=== PATIENT | male | born 1950 | race Caucasian/White ===

== ENCOUNTER → 2023-12-07 14:54 | Outpatient (BNVA) | payer MEDICARE, SELFPAY | PROVIDERS: Visit Provider Family Medicine | DX: E78.2 Mixed hyperlipidemia (principal); I10 Essential (primary) hypertension; K29.70 Gastritis, unspecified, without bleeding; E87.6 Hypokalemia | CPT/HCPCS: 80053; 80061; 83735; 85025 ==

== ENCOUNTER → 2024-05-10 10:15 | Outpatient (BNVA) | payer MEDICARE, SELFPAY | PROVIDERS: PCP Family Medicine; Visit Provider Family Medicine | DX: I10 Essential (primary) hypertension (principal); Z86.39 Personal history of other endocrine, nutritional and metabolic disease; E87.6 Hypokalemia; K29.30 Chronic superficial gastritis without bleeding | CPT/HCPCS: 80053; 83540; 83735; 85025 ==

== ENCOUNTER → 2024-12-21 08:42 | Outpatient (BNVA) | payer MEDICARE, SELFPAY | PROVIDERS: PCP Family Medicine; Visit Provider Family Medicine | DX: E78.2 Mixed hyperlipidemia (principal); I10 Essential (primary) hypertension | CPT/HCPCS: 80048; 80061 ==

== ENCOUNTER 2025-02-28 16:50 | Emergency (ER) | payer MEDICARE, SELFPAY ==
[2025-02-28 17:19] VITALS: BP 122/73; PULSE 70; RESP 16; TEMP 36.7; O2SAT 99
--- NOTE | 2025-02-28 19:17 | XRR_ITS ---
PROCEDURE INFORMATION: Exam: XR Chest Exam date and time: 02/28/2025 10:19 PM Age: 75 years old Clinical indication: Other: Weakness TECHNIQUE: Imaging protocol: Radiologic exam of the chest. Views: 1 view. COMPARISON: No relevant prior studies available. FINDINGS: Lungs: Unremarkable. No consolidation. Pleural spaces: Unremarkable. No pleural effusion. No pneumothorax. Heart/Mediastinum: A moderate hiatal hernia is present. Vasculature: There is unfolding of the thoracic aorta. Bones/joints: Post right rotator cuff repair and right distal claviculectomy. Glenohumeral severe chronic fracture deformities of multiple right ribs. XR/XR chest 1V portable [id number] IMPRESSION: No acute cardiopulmonary process.
[2025-02-28 19:47] LABS: Basophils % 0.4 %; Eosinophils # 0.1 10^3/uL (0.0-0.8); Eosinophils % 1.7 %; Hematocrit 41.4 % (37-53); Lymphocytes # 1.6 10^3/uL (0.8-4.8); Lymphocytes % 22.7 %; Mean Corpuscular HGB Conc 33.6 g/dL (30-55); Mean Corpuscular Hemoglobin 30.8 pg (27-33); Mean Corpuscular Volume 91.6 fl (82-101); Mean Platelet Volume 8.5 fL (7.4-10.4); Monocytes # 0.7 10^3/uL (0.2-0.9); Monocytes % 9.5 %; Neutrophils # 4.61 10^3/uL (1.8-7.7); Neutrophils % 65.1 %; Nucleated Red Blood Cells % 0 %; Platelet Count 238 10^3/cmm (157-399); Red Blood Count 4.52 10^6/uL (3.85-5.65); White Blood Count 7.08 10^3/uL (3.29-11.43)
[2025-02-28 20:06] LABS: Lactic Sepsis W/Reflex 0.9 mmol/L (0.5-2.2)
[2025-02-28 20:07] LABS: Troponin(5th) Baseline 31 ng/L (0-15)
[2025-02-28 20:16] LABS: Alanine Aminotransferase 15 U/L (0-41); Albumin Level 4.2 g/dL (3.5-5.2); Alkaline Phosphatase 82 U/L (40-130); Anion Gap 15.6 (5-19); Aspartate Amino Transferase 20 U/L (0-40); Blood Urea Nitrogen 25 mg/dL (8-23); Calcium 9.2 mg/dL (8.5-10.5); Carbon Dioxide 29 mmol/L (22-29); Chloride 91 mmol/L (98-107); Creatinine Clr Calc Pharmacy 64.3747; Globulin 1.9 g/dL (1.3-4.6); Glucose 102 mg/dL (65-115); NT Pro B Type Natriuretic Pept 63 pg/mL (0-450); Osmolality Calculated 279 mOsm/kg (285-295); Potassium 3.6 mmol/L (3.5-5.1); Sodium 132 mmol/L (136-145); Total Bilirubin 0.8 mg/dL (0.15-1.2); Total Protein 6.1 g/dL (6.6-8.7)
[2025-02-28 21:00] LABS: Influenza A NEGATIVE (Negative); Influenza B NEGATIVE (Negative); Respiratory Syncytial Virus Ce NEGATIVE (Negative); SARS-CoV-2 PCR NEGATIVE (Negative)
[2025-02-28 21:53] LABS: Troponin 5 2HR 30.75 ng/L (0-15)
[2025-02-28 21:54] LABS: Troponin 5 2HR Delta -0.25 ABS# (0-10)
--- NOTE | 2025-02-28 21:58 | ECG_ITS ---
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 Measurements Intervals [place] Rate: 71 P: 50 NV: 207 QRS: 36 QRSD: 160 T: 36 QT: 438 QTc: 477 Interpretive Statements SINUS RHYTHM WITH SINUS ARRHYTHMIA INDETERMINATE AXIS RIGHT BUNDLE BRANCH BLOCK [120+ ms QRS DURATION, UPRIGHT V1, 40+ ms S IN I/aVL/V4/V5/V6] No previous ECG available for comparison Electronically Signed On 03-06-2025 11:52:24 CDT by Jesse Wilson M.D. [email or web address]
--- NOTE | 2025-02-28 21:58 | ECG_ITS ---
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
[2025-02-28 22:06] VITALS: BP 135/78; PULSE 63; RESP 16; O2SAT 98
[2025-02-28 22:18] LABS: Bilirubin Urine Negative (Negative); Blood Urine Negative (Negative); Glucose Urine UA Negative (Normal); Ketones Urine Negative (Negative); Leukocyte Esterase Urine Negative (Negative); Nitrate Urine Negative (Negative); Protein Urine Negative (Negative); Specific Gravity, Urine 1.012 (1.005-1.030); Urine Appearance Clear (CLEAR); Urine Color Yellow (Yellow)
[2025-02-28 22:21] LABS: Bacteria Urine None Seen /hpf; Hyaline Casts Urine 0-4 /lpf; RBC Urine 0-2 /hpf (0-2); Squamous Epithelial Cell Urine 0-5 /hpf (0-5); WBC Urine 0-5 /hpf (0-5)
--- NOTE | 2025-02-28 23:40 | W.ED.GENADLT ---
HPI - General Adult General: Chief complaint: General Medical Stated complaint: high bp Time Seen by Provider: 02/28/25 22:23 History of Present Illness: 75-year-old man with a history of hypertension who presents the emergency room with episodes of lightheadedness and confusion and not feeling well. He had a couple of episodes of this today and his blood pressure was low at home. No other symptoms. No fever. He has a chronic cough. No chest pain. No abdominal pain. His PCP suggested he come to the emergency room for evaluation. Related Data Home Medications ?Medication ?Instructions ?Recorded ?Confirmed aspirin 81 mg tablet,delayed 81 mg PO DAILY 12/07/23 12/21/24 release (Adult Aspirin Regimen) ferrous sulfate 325 mg (65 mg 325 mg PO DAILY 12/07/23 12/21/24 iron) tablet omega-3 fatty acids 500 mg capsule 500 mg PO DAILY 12/07/23 12/21/24 zinc sulfate as directed 12/07/23 12/21/24 Previous Rx's ?Medication ?Instructions ?Recorded levocetirizine 5 mg tablet 5 mg PO DAILY 90 days #90 tabs 06/06/24 atorvastatin 10 mg tablet 10 mg PO DAILY 90 days #90 tabs 12/25/24 chlorthalidone 50 mg tablet 50 mg PO DAILY 90 days #90 tabs 12/25/24 famotidine 20 mg tablet 20 mg PO BID 90 days #180 tabs 12/25/24 furosemide 20 mg tablet 20 mg PO BID 90 days #180 tabs 12/25/24 lisinopril 20 mg tablet 20 mg PO DAILY 90 days #90 tabs 12/25/24 meloxicam 15 mg tablet 15 mg PO DAILY PRN pain 90 days 12/25/24 #90 tabs potassium chloride 10 mEq 10 meq PO BID 90 days #180 caps 12/25/24 capsule,extended release tizanidine 4 mg tablet 4 mg PO DAILY PRN muscle 12/25/24 spasticity 90 days #90 tabs Allergies Allergy/AdvReac Type Severity Reaction Status Date / Time tetanus and diphtheria Allergy ALGY-Hives Verified 12/21/24 07:28 toxoids Review of Systems Narrative: Constitutional symptoms: Negative except as documented in HPI. Skin symptoms: Negative except as documented in HPI. Eye symptoms: Negative except as documented in HPI. ENMT symptoms: Negative except as documented in HPI. Respiratory symptoms: Negative except as documented in HPI. Cardiovascular symptoms: Negative except as documented in HPI. Gastrointestinal symptoms: Negative except as documented in HPI. Genitourinary symptoms: Negative except as documented in HPI. Musculoskeletal symptoms: Negative except as documented in HPI. Neurologic symptoms: Negative except as documented in HPI. Psychiatric symptoms: Negative except as documented in HPI. Endocrine symptoms: Negative except as documented in HPI. [facility] ED PFSH: Medical History Hypertension Social History Smoking and tobacco/nicotine status: former use of tobacco/nicotine Alcohol intake: never Substance/Drug Use: never Physical Exam Narrative: EXAM NARRATIVE: General: Alert, no acute distress. Skin: Warm, dry. Head: Normocephalic, atraumatic. Neck: Supple, trachea midline. Eye: Extraocular movements are intact. Ears, nose, mouth and throat: mucosa moist. Cardiovascular: Regular, Normal peripheral perfusion. Respiratory: Lungs are clear to auscultation, respirations are non-labored, breath sounds are equal, Symmetrical chest wall expansion. Gastrointestinal: Soft, Nontender, Non distended Musculoskeletal: Normal ROM, no deformity. Neurological: Alert and oriented, No focal neurological deficit observed. Psychiatric: Cooperative, appropriate mood & affect. Course Vital Signs: Vital signs: Vital Signs Temperature 98.0 F 02/28/25 17:19 Pulse Rate 63 02/28/25 22:06 Respiratory Rate 16 02/28/25 22:06 Blood Pressure 135/78 02/28/25 22:06 Pulse Oximetry 98 02/28/25 22:06 Oxygen Delivery Me thod Room Air 02/28/25 22:06 [facility] - General Adult Medical Decision Making Medical decision making: Differential diagnosis for patient presenting with generalized weakness including but not limited to and based on the above HPI, review of systems and physical exam: Sepsis. Dehydration. Renal failure. Electrolyte abnormalities. Anemia. Congestive heart failure. Hypotension. Coronary syndrome. Hepatitis. Cirrhosis. Infections such as pneumonia, urinary tract infection, [place]ick bourne illness, Cellulitis, Viral infections including influenza and Covid-19. Workup: labwork and lab/exam driven imaging ordered to evaluate, rule in and rule out above pathologies. Lab Review: Laboratory results were reviewed and interpreted by myself the emergency room physician. No leukocytosis. No anemia. No urinary tract infection. Flu COVID RSV are negative. His BUN and creatinine are a bit elevated over his baseline so he might be a little bit dehydrated. I reviewed the patient's medical record. Reexamination: Patient remained stable. No increased work of breathing. No altered mental status. No focal motor deficits. Blood pressures remain normal while he is been here. Assessment and plan: Dehydration Normal saline bolus in the emergency room - Discharged home - Discussed plan with patient. Answered any questions. - Evaluation and treatment of this problem were appropriate in the emergency setting. Lab Data 02/28/25 19:35 02/28/25 19:35 Radiology Impressions Chest X-Ray 02/28/25 19:17 IMPRESSION: No acute cardiopulmonary process. Laboratory Results WBC 7.08 10^3/uL (3.29-11.43) 02/28/25 19:35 RBC 4.52 10^6/uL (3.85-5.65) 02/28/25 19:35 Hgb 13.90 g/dL (11.27-16.99) 02/28/25 19:35 Hct 41.4 % (37-53) 02/28/25 19:35 MCV 91.6 fl (82-101) 02/28/25 19:35 MCH 30.8 pg (27-33) 02/28/25 19:35 MCHC 33.6 g/dL (30-55) 02/28/25 19:35 RDW 12.0 % (12.1-15.1) L 02/28/25 19:35 Plt Count 238 10^3/cmm (157-399) 02/28/25 19:35 MPV 8.5 fL (7.4-10.4) 02/28/25 19:35 Neut % (Auto) 65.1 % 02/28/25 19:35 Lymph % (Auto) 22.7 % 02/28/25 19:35 [place] % (Auto) 9.5 % 02/28/25 19:35 Eos % (Auto) 1.7 % 02/28/25 19:35 Baso % (Auto) 0.4 % 02/28/25 19:35 Neut # (Auto) 4.61 10^3/uL (1.8-7.7) 02/28/25 19:35 Lymph # (Auto) 1.6 10^3/uL (0.8-4.8) 02/28/25 19:35 [place] # (Auto) 0.7 10^3/uL (0.2-0.9) 02/28/25 19:35 Eos # (Auto) 0.1 10^3/uL (0.0-0.8) 02/28/25 19:35 Baso # (Auto) 0.0 10^3/uL (0.0-0.1) 02/28/25 19:35 Nucleated RBC % (auto) 0 % 02/28/25 19:35 Nucleated RBCs # 0.0 /100WBC 02/28/25 19:35 Sodium 132 mmol/L (136-145) L 02/28/25 19:35 Potassium 3.6 mmol/L (3.5-5.1) 02/28/25 19:35 Chloride 91 mmol/L (98-107) L 02/28/25 19:35 Carbon Dioxide 29 mmol/L (22-29) 02/28/25 19:35 Anion Gap 15.6 (5-19) 02/28/25 19:35 BUN 25 mg/dL (8-23) H 02/28/25 19:35 Creatinine 1.2 mg/dL (0.7-1.2) 02/28/25 19:35 GFR Calculation Not Reportable 02/28/25 19:35 Glucose 102 mg/dL (65-115) 02/28/25 19:35 Calculated Osmolality 279 mOsm/kg (285-295) L 02/28/25 19:35 Lactic Acid 0.9 mmol/L (0.5-2.2) 02/28/25 19:35 Calcium 9.2 mg/dL (8.5-10.5) 02/28/25 19:35 Total Bilirubin 0.8 mg/dL (0.15-1.2) 02/28/25 19:35 AST 20 U/L (0-40) 02/28/25 19:35 ALT 15 U/L (0-41) 02/28/25 19:35 Alkaline Phosphatase 82 U/L (40-130) 02/28/25 19:35 Troponin T Baseline 31 ng/L (0-15) H 02/28/25 19:35 Troponin T 120 Minute 30.75 ng/L (0-15) H 02/28/25 21:30 Delta Troponin T -0.25 ABS# (0-10) L 02/28/25 21:30 C-Reactive Protein 3.0 mg/L (0.0-4.9) 02/28/25 19:35 NT-Pro-B Natriuret Pep 63 pg/mL (0-450) 02/28/25 19:35 Total Protein 6.1 g/dL (6.6-8.7) L 02/28/25 19:35 Albumin 4.2 g/dL (3.5-5.2) 02/28/25 19:35 Globulin 1.9 g/dL (1.3-4.6) 02/28/25 19:35 Urine Color Yellow (Yellow) 02/28/25 22:13 Urine Appearance Clear (CLEAR) 02/28/25 22:13 Urine pH 7.0 (5-7) 02/28/25 22:13 Ur Specific [place] 1.012 (1.005-1.030) 02/28/25 22:13 Urine Protein Negative (Negative) 02/28/25 22:13 Urine Glucose (UA) Negative (Normal) 02/28/25 22:13 Urine Ketones Negative (Negative) 02/28/25 22:13 Urine Blood Negative (Negative) 02/28/25 22:13 Urine Nitrate Negative (Negative) 02/28/25 22:13 Urine Bilirubin Negative (Negative) 02/28/25 22:13 Urine Urobilinogen 1.0 mg/dL (Negative) 02/28/25 22:13 Ur Leukocyte Esterase Negative (Negative) 02/28/25 22:13 Urine RBC 0-2 /hpf (0-2) 02/28/25 22:13 Urine WBC 0-5 /hpf (0-5) 02/28/25 22:13 Ur Squamous Epith Cells 0-5 /hpf (0-5) 02/28/25 22:13 Amorphous Sediment Not Reportable 02/28/25 22:13 Urine Bacteria None seen /hpf (NONE) 02/28/25 22:13 Hyaline Casts 0-4 /lpf H 02/28/25 22:13 Influenza A (PCR) Negative (Negative) 02/28/25 20:08 Influenza Type B (PCR) Negative (Negative) 02/28/25 20:08 RSV (PCR) Negative (Negative) 02/28/25 20:08 SARS-CoV-2 (PCR) Negative (Negative) 02/28/25 20:08 All radiology interpretation(s) finalized by discharge Discharge Plan Discharge Patient Disposition: Home Clinical Impression: Dehydration Condition: Stable Prescriptions: No Action levocetirizine 5 mg tablet 5 mg PO DAILY 90 Days Qty: 90 3RF aspirin [Adult Aspirin Regimen] 81 mg tablet,delayed release (DR/EC) 81 mg PO DAILY ferrous sulfate 325 mg (65 mg iron) tablet 325 mg PO DAILY omega-3 fatty acids 500 mg capsule 500 mg PO DAILY zinc sulfate as directed atorvastatin 10 mg tablet 10 mg PO DAILY 90 Days Qty: 90 2RF chlorthalidone 50 mg tablet 50 mg PO DAILY 90 Days Qty: 90 2RF famotidine 20 mg tablet 20 mg PO BID 90 Days Qty: 180 3RF furosemide 20 mg tablet 20 mg PO BID 90 Days Qty: 180 1RF Rx Instructions: every AM, 2nd dose at noon IF NEEDED lisinopril 20 mg tablet 20 mg PO DAILY 90 Days Qty: 90 2RF meloxicam 15 mg tablet 15 mg PO DAILY PRN (Reason: pain) 90 Days Qty: 90 2RF Rx Instructions: WITH FOOD potassium chloride 10 mEq capsule, extended release 10 meq PO BID 90 Days Qty: 180 2RF tizanidine 4 mg tablet 4 mg PO DAILY PRN (Reason: muscle spasticity) 90 Days Qty: 90 3RF Discharge Orders: Discharge ED (Routine); Ordered 02/28/25 Ordered By: Rayne Barahona Referrals: Natalia Feng MD [Primary Care Provider, Family Practice] Discharge Diet: Usual diet Discharge Activity: Increase activity as tolerated Patient Instructions: Opioid Safety, Pain Management Activity Restrictions/Additional Instructions: Thank you for choosing [facility] for your healthcare needs today. You have been screened and evaluated and felt safe for discharge. Health conditions do change or evolve sometimes and as such it is important that you follow up with your Primary Doctor to be re checked, 3-5 days is a general good time frame for follow up. 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
[2025-02-28 23:55] VITALS: BP 106/64; PULSE 72; O2SAT 95
== END 2025-03-01 00:01 | disposition home or self-care (01) ==
PROVIDERS: Emergency Provider Emergency Medicine; PCP Family Medicine
DX: E86.0 Dehydration (principal); Z79.82 Long term (current) use of aspirin; Z11.52 Encounter for screening for COVID-19; Z87.891 Personal history of nicotine dependence
CPT/HCPCS: 36415; 71045; 80053; 81001; 83605; 83880; 84484; 85025; 86140; 87040; 87637; 93005; 99285

== ENCOUNTER → 2025-03-07 08:46 | Outpatient (BNVA) | payer MEDICARE, SELFPAY | PROVIDERS: PCP Family Medicine; Visit Provider Family Medicine | DX: I10 Essential (primary) hypertension (principal); E87.6 Hypokalemia | CPT/HCPCS: 80048 ==

== ENCOUNTER → 2025-04-03 09:15 | Outpatient (BNVA) | payer MEDICARE, SELFPAY | PROVIDERS: PCP Family Medicine; Visit Provider Family Medicine | DX: I10 Essential (primary) hypertension (principal); K29.30 Chronic superficial gastritis without bleeding; E87.6 Hypokalemia | CPT/HCPCS: 80053; 85025 ==

== ENCOUNTER → 2025-04-10 13:26 | Outpatient (BNVA) | payer MEDICARE, MEDICAID, SELFPAY | PROVIDERS: PCP Family Medicine; Visit Provider Family Medicine | DX: I10 Essential (primary) hypertension (principal) | CPT/HCPCS: 80048 ==

== ENCOUNTER → 2025-04-17 08:32 | Outpatient (BNVA) | payer MEDICARE, MEDICAID, SELFPAY | PROVIDERS: PCP Family Medicine; Referring Provider Family Medicine; Visit Provider Family Medicine | DX: E87.6 Hypokalemia (principal) | CPT/HCPCS: 80048 ==

== ENCOUNTER → 2025-05-28 13:53 | Outpatient (BNVA) | payer MEDICARE, MEDICAID, SELFPAY | PROVIDERS: Family Provider Family Medicine; PCP Family Medicine; Visit Provider Podiatrist Foot & Ankle Surgery | DX: I73.9 Peripheral vascular disease, unspecified (principal); L84 Corns and callosities; I89.0 Lymphedema, not elsewhere classified; M76.829 Posterior tibial tendinitis, unspecified leg; M21.611 Bunion of right foot; M21.612 Bunion of left foot; M21.41 Flat foot [pes planus] (acquired), right foot; M21.42 Flat foot [pes planus] (acquired), left foot; M20.41 Other hammer toe(s) (acquired), right foot; M20.42 Other hammer toe(s) (acquired), left foot; G62.9 Polyneuropathy, unspecified; M76.821 Posterior tibial tendinitis, right leg; M76.822 Posterior tibial tendinitis, left leg | CPT/HCPCS: 11056; 99204 ==

== ENCOUNTER 2025-06-19 07:39 | Outpatient (CLI) | payer MEDICARE, MEDICAID, SELFPAY ==
--- NOTE | 2025-06-19 07:45 | USCV_ITS ---
Maximino Zapata Age: 75 Gender: M : 1950 Exam Date: 06/19/2025 08:13 Ordering Phys: Natalia Feng MD Technologist: [place] [facility] [place]: cp sob BP: 140 / 75 HR: 74 Rhythm: Sinus Technical Quality: Adequate MEASUREMENTS (Male / Female) Normal Values 2D ECHO LV Diastolic Diameter PLAX 3.6 cm 4.2 - 5.9 / 3.9 - 5.3 cm IVS Diastolic Thickness 1.1 cm 0.6 - 1.0 / 0.6 - 0.9 cm IVS Systolic Thickness 1.1 cm LVPW Diastolic Thickness 1.1 cm 0.6 - 1.0 / 0.6 - 0.9 cm LVPW Systolic Thickness 1.6 cm LVOT Diameter 2.0 cm LV Ejection Fraction 2D Teich 67.7 % LV Ejection Fraction MOD 4C 72.8 % LV Ejection Fraction MOD 2C 69.0 % LV Ejection Fraction 2C AL 69.0 % LA Diameter 3.9 cm RA Systolic Volume 4C AL 38.9 ml RA Systolic Volume 4C MOD 35.6 ml Aorta at Sinotubular Diameter 3.1 cm M-MODE LA Ao Ratio MM 1.0 AV Cusp Separation MM 1.9 cm DOPPLER AV Peak Velocity 128.7 cm/s LVOT Peak Velocity 90.0 cm/s AV Area Cont Eq vti 3.1 cm squared AV Area Cont Eq pk 2.3 cm squared MV Peak Velocity 108.0 cm/s MV Area PHT 2.4 cm squared Mitral E to A Ratio 0.8 TV Peak Velocity 219.0 cm/s TR Peak Velocity 223.0 cm/s TR Peak Gradient 19.9 mmHg TV Peak E Velocity 87.0 cm/s PV Peak Velocity 111.0 cm/s FINDINGS Left Ventricle Normal left ventricular size and systolic function, EF 73%.. Mild left ventricular hypertrophy. No regional wall motion abnormalities. Grade I/IV diastolic dysfunction (abnormal relaxation filling pattern), normal to mildly elevated filling pressures. Right Ventricle The right ventricle is normal in size and function. Right Atrium The right atrium is normal in size. Left Atrium The left atrium is normal in size. Mitral Valve No gross abnormalities noted Aortic Valve Thickened aortic valve. Tricuspid Valve Trace tricuspid valve regurgitation. Pulmonic Valve No gross abnormalities noted Pericardium No pericardial effusion. Aorta Normal ascending aorta dimension. IVC Inferior vena cava not visualized. CONCLUSIONS Normal left ventricular size and systolic function, EF 73%.. Mild left ventricular hypertrophy. No regional wall motion abnormalities. Grade I/IV diastolic dysfunction (abnormal relaxation filling pattern), normal to mildly elevated filling pressures. Thickened aortic valve. Trace tricuspid valve regurgitation. Estimated pulmonary artery peak systolic pressure 23 mmHg There is no pericardial effusion. There are no intracardiac masses. No similar previous studies are available for comparison Dr Mariola Owens MD FACC (Electronically Signed) Final Date: 22 June 2025 09:15 S
== END 2025-06-19 07:40 | disposition home or self-care (01) ==
LOC: RAD 07:40
PROVIDERS: PCP Family Medicine; Visit Provider Family Medicine
DX: I10 Essential (primary) hypertension (principal); I89.0 Lymphedema, not elsewhere classified; R01.1 Cardiac murmur, unspecified
CPT/HCPCS: 93306

== ENCOUNTER 2025-06-21 07:47 | Outpatient (CLI) | payer MEDICARE, MEDICAID, SELFPAY ==
--- NOTE | 2025-06-21 08:00 | USCV_ITS ---
Maximino Zapata Age: 75 Gender: M : 1950 Exam Date: 06/21/2025 08:00 Ordering Phys: Natalia Feng MD Technologist: [place]am [place] [facility] [place]: lt leg pain and swelling PROCEDURES: Venous duplex imaging was performed in only the left lower extremity. The following venous structures were evaluated: common femoral vein, profunda vein, proximal portion of the greater saphenous vein, superficial femoral vein, and the popliteal vein. In addition, the posterior tibial and peroneal trunk were evaluated. FINDINGS: Normal 2-D Doppler and augmentation and compressibility throughout the lower extremity venous structures. Additional imaging through the proximal calf veins also reveals no thrombus. Limited evaluation of the greater saphenous vein is patent with no thrombus. CONCLUSIONS No DVT left lower extremity. Dr. Mady Moseley DO (Electronically Signed) Final Date: 21 June 2025 10:13 S
== END 2025-06-21 07:48 | disposition home or self-care (01) ==
PROVIDERS: PCP Family Medicine; Visit Provider Family Medicine
DX: M79.605 Pain in left leg (principal); M79.89 Other specified soft tissue disorders
CPT/HCPCS: 93971

== ENCOUNTER → 2025-08-13 14:16 | Outpatient (BNVA) | payer MEDICARE, MEDICAID, SELFPAY | PROVIDERS: PCP Family Medicine; Visit Provider Podiatrist Foot & Ankle Surgery | DX: L84 Corns and callosities (principal); I89.0 Lymphedema, not elsewhere classified; M21.611 Bunion of right foot; M21.612 Bunion of left foot; M21.41 Flat foot [pes planus] (acquired), right foot; M21.42 Flat foot [pes planus] (acquired), left foot; I73.9 Peripheral vascular disease, unspecified; M20.41 Other hammer toe(s) (acquired), right foot; M20.42 Other hammer toe(s) (acquired), left foot; G62.9 Polyneuropathy, unspecified; M76.821 Posterior tibial tendinitis, right leg; M76.822 Posterior tibial tendinitis, left leg | CPT/HCPCS: 99213 ==

== ENCOUNTER → 2025-08-20 09:15 | Outpatient (BNVA) | payer MEDICARE, MEDICAID, SELFPAY | PROVIDERS: PCP Family Medicine; Visit Provider Family Medicine | DX: I10 Essential (primary) hypertension (principal); I50.32 Chronic diastolic (congestive) heart failure | CPT/HCPCS: 80048 ==

== ENCOUNTER → 2025-08-23 13:07 | Outpatient (BNVA) | payer MEDICARE, MEDICAID, SELFPAY | PROVIDERS: PCP Family Medicine; Referring Provider Family Medicine; Visit Provider Family Medicine | DX: I10 Essential (primary) hypertension (principal) | CPT/HCPCS: 80048 ==

== ENCOUNTER → 2025-08-27 10:14 | Outpatient (BNVA) | payer MEDICARE, MEDICAID, SELFPAY | PROVIDERS: PCP Family Medicine; Visit Provider Family Medicine | DX: I11.0 Hypertensive heart disease with heart failure (principal); I50.32 Chronic diastolic (congestive) heart failure; E87.6 Hypokalemia | CPT/HCPCS: 80048; 83735 ==

== ENCOUNTER → 2025-09-03 15:25 | Outpatient (BNVA) | payer MEDICARE, MEDICAID, SELFPAY | PROVIDERS: PCP Family Medicine; Visit Provider Family Medicine | DX: E87.6 Hypokalemia (principal) | CPT/HCPCS: 80048 ==

== ENCOUNTER → 2025-09-13 11:04 | Outpatient (BNVA) | payer MEDICARE, MEDICAID, SELFPAY | PROVIDERS: PCP Family Medicine; Visit Provider Family Medicine | DX: E87.6 Hypokalemia (principal) | CPT/HCPCS: 80048 ==

== ENCOUNTER → 2025-09-24 07:53 | Outpatient (BNVA) | payer MEDICARE, MEDICAID, SELFPAY | PROVIDERS: PCP Family Medicine; Visit Provider Podiatrist Foot & Ankle Surgery | DX: L84 Corns and callosities (principal); I89.0 Lymphedema, not elsewhere classified; M21.611 Bunion of right foot; M21.612 Bunion of left foot; M21.41 Flat foot [pes planus] (acquired), right foot; M21.42 Flat foot [pes planus] (acquired), left foot; I73.9 Peripheral vascular disease, unspecified; M20.41 Other hammer toe(s) (acquired), right foot; M20.42 Other hammer toe(s) (acquired), left foot; G62.9 Polyneuropathy, unspecified; M76.821 Posterior tibial tendinitis, right leg; M76.822 Posterior tibial tendinitis, left leg | CPT/HCPCS: 99213 ==

== ENCOUNTER → 2025-09-25 08:58 | Outpatient (BNVA) | payer MEDICARE, MEDICAID, SELFPAY | PROVIDERS: PCP Family Medicine; Visit Provider Family Medicine | DX: I50.32 Chronic diastolic (congestive) heart failure (principal); I11.0 Hypertensive heart disease with heart failure | CPT/HCPCS: 80048 ==

== ENCOUNTER → 2025-10-02 10:03 | Outpatient (BNVA) | payer MEDICARE, MEDICAID, SELFPAY | PROVIDERS: PCP Family Medicine | DX: E87.6 Hypokalemia (principal) | CPT/HCPCS: 80048 ==